=== PATIENT | female | born 1970 | race Caucasian/White ===

== ENCOUNTER 2023-03-29 14:35 | Emergency (ER) | payer OTHER ==
[2023-03-29 14:39] VITALS: BP 135/60; PULSE 60; RESP 18; TEMP 98; BMI 24.9
[2023-03-29] MEDS ORDERED: AMOX TR/POT CLAV 875MG/125MG TABLETS (FP) PO ONE (15:50)
[2023-03-29] MEDS ORDERED: ACETAMINOPHEN 500 MG TABLET (FP) PO ONE (15:52)
[2023-03-29] MEDS ORDERED: AMOX TR/POT CLAV 875MG/125MG TABLETS (FP) ONE (16:01)
[2023-03-29] MEDS ORDERED: ACETAMINOPHEN 500 MG TABLET (FP) ONE (16:02)
== END 2023-03-29 17:03 | disposition home or self-care (01) ==
LOC: JERFT 14:35
DX: S51.851A Open bite of right forearm, initial encounter (principal); S61.451A Open bite of right hand, initial encounter; W54.0XXA Bitten by dog, initial encounter
CPT/HCPCS: 99283-25

== ENCOUNTER 2023-03-31 19:28 | Emergency (ER) | payer OTHER ==
[2023-03-31 19:58] VITALS: BP 128/45; PULSE 69; RESP 18; TEMP 98.2; BMI 24.9
== END 2023-03-31 21:01 | disposition home or self-care (01) ==
LOC: JERFT 19:28
DX: Z48.01 Encounter for change or removal of surgical wound dressing (principal)
CPT/HCPCS: 99281-25